=== PATIENT | male | born 1990 | race Caucasian/White ===

== ENCOUNTER 2016-08-26 14:57 | Emergency (ER) | payer OTHER ==
--- NOTE | 2016-08-26 15:34 | RAD ---
RIGHT LOWER LEG 2 VIEWS HISTORY: Right lower leg crush injury. COMPARISONS: None. TECHNIQUE: Frontal and lateral views the right lower leg. ALIGNMENT: Grossly unremarkable. FRACTURE: No displaced acute fracture. SOFT TISSUES: Grossly unremarkable. RADIOOPAQUE FOREIGN BODY: None. IMPRESSION: No gross malalignment or displaced acute fracture noted.
== END 2016-08-26 16:53 | disposition home or self-care (01) ==
LOC: ED 14:57
DX: S87.81XA Crushing injury of right lower leg, initial encounter (principal); W31.9XXA Contact with unspecified machinery, initial encounter; Y92.69 Other specified industrial and construction area as the place of occurrence of the external cause; Y99.0 Civilian activity done for income or pay